=== PATIENT | female | born 2000 | race Caucasian/White ===

== ENCOUNTER 2018-02-26 14:10 | Emergency (ER) | payer OTHER ==
[2018-02-26 15:22] LABS: INFLUENZA A AMPLIFICATION NEGATIVE (NEGATIVE); INFLUENZA B AMPLIFICATION NEGATIVE (NEGATIVE)
[2018-02-26] MEDS: ACETAMINOPHEN 325 MG TAB PO (17:08)
[2018-02-26] MEDS: dexameTHASONE 4 MG/ML 1ML VIAL (J1100) PO (17:08)
== END 2018-02-26 17:13 | disposition home or self-care (01) ==
LOC: M ED 14:10
DX: J02.0 Streptococcal pharyngitis (principal); H92.01 Otalgia, right ear
CPT/HCPCS: J1100

== ENCOUNTER 2018-06-24 05:31 | Emergency (ER) | payer OTHER ==
[~2018-06-24] VITALS: Ht 172.7 cm; Wt 65.0 kg
[~2018-06-24 05:31] MED LIST: AMOX500C PO; MAGICMW SS
[2018-06-24] MEDS ORDERED: NS 1,000 ML IV ONE (06:30)
[2018-06-24] MEDS ORDERED: KETOROLAC 30 MG/ML VIAL (J1885) IV ONE (06:30)
[2018-06-24] MEDS ORDERED: METOCLOPRAMIDE INJ 10MG/2ML VIAL (J2765) IV ONE (06:30)
[2018-06-24 07:28] VITALS: BP 102/56
[2018-06-24] MEDS ORDERED: ONDA4TAB6 PO (07:39)
[2018-06-24] MEDS ORDERED: IBUP-1022 PO (07:39)
== END 2018-06-24 08:00 | disposition home or self-care (01) ==
LOC: M ED 05:31
DX: G43.909 Migraine, unspecified, not intractable, without status migrainosus (principal)
CPT/HCPCS: 96361; 96374; 96375; 99284; J1885; J2765